=== PATIENT | female | born 1985 | race Caucasian/White ===

== ENCOUNTER 2020-02-10 10:45 | Outpatient (CLI) | payer OTHER, SELFPAY ==
--- NOTE | ~2020-02-10 | US_ITS ---
EXAMINATION: US pelvic complete w TV DATE: 02/10/2020 11:39 INDICATION: Pelvic and perineal pain TECHNIQUE: Multiple transabdominal and endovaginal sonographic images of the pelvis were obtained. COMPARISON: 04/01/2013 FINDINGS: The uterus measures 7.2 x 6.7 x 4.9 cm. The endometrial complex measures 8 mm. The right ov yimi measures 2.3 x 1.7 x 1.7 cm. The left ovary measures 3.4 x 2.8 x 2.3 cm and contains a 2.3 cm cys t. There is normal vascular flow in the ovaries. There is no free fluid in the pelvis. IMPRESSION: 1. No sonographic correlate for the patient's symptoms. Reviewed, dictated and finalized at location A.
== END 2020-02-10 10:46 | disposition home or self-care (01) ==
PROVIDERS: PCP Family Medicine; Visit Provider Obstetrics & Gynecology
DX: R10.2 Pelvic and perineal pain (principal)
CPT/HCPCS: 76830; 76856

== ENCOUNTER 2020-05-04 00:55 | Outpatient (CLI) | payer OTHER, SELFPAY ==
[2020-05-04 18:01] LABS: SARS-CoV-2 RNA PCR Negative
== END 2020-05-04 00:56 | disposition home or self-care (01) ==
LOC: ANHCOVIDDT 00:55
PROVIDERS: PCP Family Medicine; Visit Provider Obstetrics & Gynecology
DX: Z20.828 Contact with and (suspected) exposure to other viral communicable diseases (principal)
CPT/HCPCS: 87635; C9803; U0003

== ENCOUNTER 2020-05-06 00:30 | Day surgery (SDC) | payer OTHER, SELFPAY ==
[2020-04-21 14:12] VITALS: BMI 20.2
--- NOTE | 2020-05-05 15:53 | PM.IMHP ---
H&P: HPI History of Present Illness Date/Time: 05/05/20 15:53 Chief complaint: menorrhagia dysmenorrhea Narrative: Rand Ash is a 35 year old female with a history of pelvic pain that has been increasing this year. The pain is cyclic. Have recommended premenstrual NSAIDs and this has not helped. She has been evaluated for endometritis which was negative. She has had a normal pelvic ultrasound. She refuses to take any type of hormonal option to help with the pain. She has had an endometrial ablation which did decrease her heavy flow but she states the flow has gotten back heavy over the past three months. 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 Discussed treatment options if endometriosis. She does not want to do any medication. She desires definitive treatment since her bleeding is still heavy for her even after the ablation. She has been informed of risk benefit of each option. Informed of 5-8% chance of needing any needing evaluation of ovaries since they will be not be removed unless concern seen with the ovaries at time of surgery. It is recommended at this age not to remove ovaries. She declines trial of control pills,Depo-Provera or IUD. Offered Orilissa and she declines. Spouse has vasectomy. Review of Systems Review of Systems: All systems reviewed & are unremarkable except as noted in HPI and below Constitutional: Constitutional: Reports no additional constitutional complaints Eyes: Eyes: Reports no additional eye complaints ENT: Reports Normal hearing present Cardiovascular: Cardiovascular: Denies chest pain and Denies dyspnea Respiratory: Respiratory: Reports no additional respiratory complaints, Reports cough, Denies dyspnea and Reports other Gastrointestinal: Gastrointestinal: Denies abdominal pain Genitourinary: Genitourinary: Reports no additional female genitourinary complaints, Reports as per HPI, Denies dyspareunia, Denies vaginal discharge, Denies vaginal dryness, Denies vaginal odor and Denies vaginal pruritus Integumentary/Breasts: Skin/Breast: Denies breast mass and Denies nipple discharge Neurologic: Reports Normal hearing present Psychiatric: Psychiatric: Reports no additional psychiatric complaints Endocrine: Endocrine: Reports no additional endocrine complaints Hematologic/Lymphatic: Hematologic/Lymphatic: Reports no additional hematologic/lymphatic complaints [facility] Past Medical History Medical History Anemia Anxiety Menometrorrhagia Surgical History Surgical History S/P endometrial ablation Family History Family History Father Family history of elevated blood lipids Family history of diabetes mellitus in first degree relative Grandparent Diabetes mellitus Other Depression Hypertension Malignant neoplasm of prostate Other malignant neoplasm without specification of site Sudden of family member Social History Social History Smoking status: Never smoker Second hand tobacco smoke exposure: No Alcohol intake: current Drinks per week: 1 Substance use: never Living arrangements: with family Spiritual care concerns: No Meds Home Medications and Allergies Home Medications Medication Instructions Recorded Confirmed Type Adult Probiotic 1 cap PO DAILY 04/21/20 04/22/20 History ibuprofen 400 mg PO Q6H PRN 04/21/20 04/22/20 History mihgpzuvqzsr-snu-kcth-FA-vit K 1 tablet PO DAILY 04/21/20 04/22/20 History [Adults Multivitamin] Allergies Allergy/AdvReac Type Severity Reaction Status Date / Time codeine Allergy Severe Other Verified
[2020-05-06] VITALS (17 sets, daily range): BP systolic 96–127; BP diastolic 43–79; PULSE 65–86; RESP 10–18; TEMP 36.1–37.6; O2SAT 97–100
[2020-05-06] MEDS: LACTATED RINGERS 1,000 ML 30 ML IV CONT ×2 (06:40→11:55)
[2020-05-06] MEDS: ACETAMINOPHEN 500 MG TABLET 1000 MG PO (06:57)
[2020-05-06] MEDS: KETOROLAC 15 MG/ML VIAL (*BKC) IV PUSH (06:57)
--- NOTE | 2020-05-06 07:07 | WPDANESEPPF ---
Anes - Initial Pre Proc Eval Procedure: Operation Date: 05/06/20 07:30 Proposed Procedures p Robotic Assisted Laparoscopic Hysterectomy With Bilateral Salpingectomy - Daniel Segundo MD Date/Time: 05/06/20 07:07 Surgeon: Daniel Segundo MD Pre Op Diagnosis: menorrhagia dysmenorrhea Patient Data Age: 35 Gender: F Height: 5 ft 6 in Weight: 57.9 kg Last Vital Signs Temp 37.2 C 05/06/20 06:57 Pulse 82 05/06/20 06:57 Resp 16 05/06/20 06:57 BP 114/70 05/06/20 06:57 Pulse Ox 100 05/06/20 06:57 Allergies Allergy/AdvReac Type Severity Reaction Status Date / Time codeine Allergy Severe Other Verified 05/06/20 06:25 Penicillins Allergy Intermediate HIVES Verified 04/21/20 16:19 Home Medications Medication Instructions Recorded Confirmed Type Adult Probiotic 1 cap PO DAILY 04/21/20 05/06/20 History ibuprofen 400 mg PO Q6H PRN 04/21/20 05/06/20 History csalcjucqfsw-mcu-ljzy-FA-vit K 1 tablet PO DAILY 04/21/20 05/06/20 History [Adults Multivitamin] Patient hx anesthesia problems: none Family hx anesthesia problems: none PMFSH Past Medical History Medical History Anemia Anxiety Menometrorrhagia Surgical History Surgical History S/P endometrial ablation Family History Family History Father Family history of elevated blood lipids Family history of diabetes mellitus in first degree relative Grandparent Diabetes mellitus Other Depression Hypertension Malignant neoplasm of prostate Other malignant neoplasm without specification of site Sudden of family member Social History Social History Smoking status: Never smoker Second hand tobacco smoke exposure: No Alcohol intake: current Drinks per week: 1 Substance use: never Living arrangements: with family Spiritual care concerns: No Anes - Eval Final PreProcedure Day of Procedure 05/06/20 07:07 Patient weight: normal Heart: regular rate and rhythm Lungs: clear to auscultation Airway: Mallampati scale class II Neurological: alert and oriented Last oral intake: >/= 8 hours ASA classification: II Emergent: no Anesthetic plan: proceed Anesthesia type and monitoring: general ETT and standard monitoring Informed Consent: The patient's anesthetic plan and its attendant risks and benefits were discussed with the patient/family/POA. Questions were solicited and answers provided to the satisfaction of the patient/family/POA.
--- NOTE | 2020-05-06 07:19 | WPDHPUPDATE1 ---
History and Physical Update Update Date/Time: 05/06/20 07:19 History and Physical has been reviewed, including an updated exam of the patient. There are NO changes in the patient's condition. Risks, benefits, and alternatives have been discussed and questions answered. Patient agrees to proceed with procedure.
[2020-05-06] MEDS: CLINDAMYCIN 900 MG/NS 50 ML 900 MG/50 ML PIGGYBACK 50 MG IVPB (07:29)
--- NOTE | 2020-05-06 11:04 | SUR.OPER ---
Qoq=[id number]
[2020-05-06] MEDS: fentaNYL CITRATE INJ (*CRX) 100 MCG/2 ML VIAL 25 MCG IV PUSH ×6 (12:02→12:27)
--- NOTE | 2020-05-06 12:04 | PM.PROC ---
Procedure Note - Detailed Date of procedure: 05/07/20 Pre-op diagnosis: menorrhagia dysmenorrhea Post-op diagnosis: same Procedure performed: Robotic assisted laparoscopic total hysterectomy and bilateral salpingectomy. Description of procedure: After informed consent was obtained patient was taken to the operating room and general endotracheal anesthesia was administered. She was placed in low lithotomy position and prepped and draped in sterile fashion. Prior to being prepped and draped and exam under anesthesia was performed and no masses were palpated uterus palpated to be normal size. Attention was then turned to the vagina. A Madrigal catheter had been placed in bladder during prep. Weighted speculum was placed in the vagina. The anterior vaginal wall was retracted with a retractor. A single-tooth tenaculum was placed on the anterior lip of the cervix the uterus was sounded to 8 cm the cervix was dilated with a dilator. The uterine manipulator was inserted and the bulb would not inflate twice. 0 vicyl suture was placed at anterior and posterior cervix and attached to clamp with the maniipulator handle. A 3.5 cm colp cup was secured in the vagina. Prior to securing the cup the single-tooth tenaculum was removed from the cervix. Attention was then turned to the abdomen. With sterile gloves a horizontal incision was made 2cm above the umbilicus with the scalpel. A Veress needle was inserted into the abdomen confirmation into the abdomen was obtained with normal free flow of fluid through the veress needle and normal peritoneal pressures. A pneumoperitoneum of 15 mm per mercury was obtained and a size 11 trocar was inserted under laparoscopic visualization. Attention was then turned to the left side of the abdomen and a robotic port was inserted under laparoscopic visualization. Attention was then turned to the right side parallel to this and a robotic port was inserted under laparoscopic visualization. Superior and medial to this a music library assistant port was inserted under laparoscopic visualization. The patient was placed in Trendelenburg to allow the intestinal organs out of the pelvis. The robotic arms were then attached to the ports. Attention was then turned to the surgery console. Attention was turned to the right round ligament which was cauterized and cut the anterior leaf of the broad ligament was further dissected anteriorly to the vesicouterine peritoneum. The bladder was dissected from the lower uterine segment anteriorly attention was then attention was turned to the fallopian tube which was cauterized from the upper broad ligament and distal ovary. Attention was then turned to the ovarian ligament which was then cauterized and cut. The broad ligament was further cauterized and ascending uterine vessels were cauterized. The uterine arteries were skeletonized. Attention was then turned to the left fallopian tube which was cauterized from the broad ligament. The left ovarian ligament was cauterized. The ascending uterine vessels were cauterized from the broad ligament. Broad ligament furthe dissected. Attention was then turned to the left round ligament which was cauterized and incised. The anterior leaf of the broad ligament was further incised to the vesicouterine peritoneum. The bladder was further dissected from the rest of the lower uterine segment. The uterine vessels on the left side were noted to be engorged and tortuous. The uterine arteries on the left side were skeletonized and cauterized. The cardinal ligament cauterized. Attention was then turned to the right side and the uterine arteries were skeletonized and uterine arteries were cauterized after the bladder was dissected below the palpable colp cup. The right cardinal ligaments were then cauterized and anterior colpotomy incision was made and the cervix was cauterized from the vagina. The cervix with the uterus and right and left fallopian tubes were then removed through the vagina. The vaginal cuff wa
[2020-05-06] MEDS: HYDROmorphone HCL INJ (*CRX) 1 MG/ML SYR 0.5 MG IV PUSH ×2 (12:30→12:39)
[2020-05-06] MEDS: DEXTROSE 5%/0.45% SOD CHL 1,000 ML 125 ML IV CONT ×2 (14:05→22:25)
--- NOTE | 2020-05-06 15:22 | PC.NURSE ---
This patient, Rand Baez Unfried, was admitted to OB 2nd Floor Room 289-00. Patient/family oriented to hospital policies and general routines including ID bracelet, bed and alarms, visiting hours, pain management, procedures, bathroom and other care routines, personal items, smoking policy, room service/diet, and visiting hours. Valuables list has been completed. Information on how to activate the Rapid Response Team has been discussed. Patient/Family are encouraged to report perceived risks to care and to ask questions if they do not understand what they are told or what they should do.
--- NOTE | 2020-05-06 15:58 | P.PNOB_ITS ---
SHADOWGRAPH SCALE OPERATOR - A/P Postoperative Procedures: Procedures Operation Date: 05/06/20 07:30 Actual Procedures Side Surgeon p Robotic Assisted Laparoscopic Hysterectomy With Bilateral Salpingectomy Bilateral Daniel Segundo MD Time Spent With Patient Time: Total time spent is greater than 50% in coordination of care (as documented) at patient's floor/unit and/or counseling patient: Time with patient: less than 15 minutes SHADOWGRAPH SCALE OPERATOR- PN:Subj Post-Op Subjective Date/time seen: 05/06/20 15:58 Patient awake. She states that she does not have much abdominal pain but she is very uncomfortable with catheter. She has always had sensitivity to catheters. Will remove and told her if has to urinate then bed regalado or they can see if she able to ambulate with assistance. Will DC catheter. Explained her surgery to her. Spouse in room also. SHADOWGRAPH SCALE OPERATOR - PN: Obj Data Vital Signs Vital Signs: Vital Signs - 24 hr 05/06/20 06:57 05/06/20 11:55 05/06/20 12:10 Temperature 99.0 F 97.0 F L Pulse Rate 82 69 72 Respiratory Rate 16 10 L 18 Blood Pressure 114/70 108/68 110/59 L Pulse Oximetry 100 100 100 05/06/20 12:25 05/06/20 12:40 05/06/20 12:55 Temperature 98.3 F Pulse Rate 65 70 66 Respiratory Rate 14 14 16 Blood Pressure 102/73 104/66 127/79 Pulse Oximetry 100 100 99 05/06/20 13:30 05/06/20 13:45 05/06/20 14:00 Temperature 99.6 F Pulse Rate 83 69 84 Respiratory Rate 16 16 16 Blood Pressure 119/75 108/57 L 105/58 L Pulse Oximetry 100 97 98 05/06/20 14:30 05/06/20 15:00 Temperature 98.5 F Pulse Rate 78 84 Respiratory Rate 16 16 Blood Pressure 109/51 L 108/51 L Pulse Oximetry 98 98 Intake/Output Intake/Output: Intake & Output 05/03/20 05/04/20 05/05/20 05/06/20 23:59 23:59 23:59 23:59 Intake Total 450 Output Total 245 Balance 205 Meds/Results Medications: Active Medications Generic Name Dose Route Start Last Admin Trade Name Freq PRN Reason Stop Dose Admin Dextrose/Sodium Chloride 1,000 mls @ 125 mls/hr 05/06/20 12:10 05/06/20 14:05 Dextrose 5% Sodium Chloride 0.45% IV CONT 125 mls/hr .Q8H TYRON Administration Acetaminophen 1,000 mg in 100 mls @ 400 mls/hr 05/06/20 12:00 05/06/20 14:05 Ofirmev 1,000 Mg Ivpb IVPB 05/07/20 12:01 400 mls/hr Q6HR TYRON Administration Naloxone HCl 0.1 mg 05/06/20 12:07 Narcan IV PUSH Q2M PRN Respiratory rate less than 10 Ondansetron HCl 4 mg 05/06/20 06:54 Zofran Inj IV PUSH ONCE PRN Nausea Ondansetron HCl 4 mg 05/06/20 12:07 Zofran Inj IV PUSH Q6H PRN Nausea And Vomiting Simethicone 80 mg 05/06/20 12:07 Mylicon PO Q2H PRN Gas Labs CBC & Chem 7: 05/07/20 04:19 Labs: Laboratory Results - last 24 hr 05/06/20 06:50 Blood Type O Positive Antibody Screen Negative
[2020-05-06] MEDS: ONDANSETRON INJ 4 MG/2 ML VIAL IV PUSH (20:38)
[2020-05-06] MEDS: FENTANYL 600MCG/NS30MLPCA(*CRX 600 MCG/30 ML PCA.VIAL 10 MCG IV CONT (23:03)
--- NOTE | 2020-05-06 23:05 | PC.NURSE ---
Patient states she is in a lot of pain. OVEN BAKER started per Dr. Segundo's orders, education on OVEN BAKER discussed with patient and her . Both verbalize understanding. Patient very anxious about the medication, pain, and voiding. I placed the blood pressure cuff on the patient to get vitals for the lunchroom food service supervisor and she started to go into a panic attack. She asked that the cuff be removed, she states that she can not stand to have things on her like the blood pressure cuff or the SCD's, she states she just wants to sleep and feels that she cannot sleep if those are on her. Pt is in tears, she just wants to relax and sleep. BP cuff and SCD's removed will monitor BP when I come back in the room to get her up to the bathroom or if she calls out. in the room and will continue to monitor patient also and call out if there is any concern. Call light within reach.
[2020-05-07 01:00] VITALS: BP 101/65; PULSE 82; RESP 18; TEMP 37.2; O2SAT 100
[2020-05-07 01:50] VITALS: BP 102/61; PULSE 88; RESP 18; O2SAT 100
[2020-05-07 04:25] VITALS: BP 96/56; PULSE 66; RESP 18; TEMP 36.9; O2SAT 100
[2020-05-07 04:28] VITALS: RESP 18; O2SAT 100
[2020-05-07 05:30] LABS: Basophils Percent Auto 0.3 % (0.2-1.2); Hematocrit 29.3 % (37.0-47.0); Hemoglobin 9.9 g/dL (12.0-15.0); Immature Granulocyte Absolute 0.03 K/mm3 (0.00-0.031); Immature Granulocyte Percent A 0.3 % (0-0.5); Lymphocytes Absolute Auto 2.17 K/mm3 (0.9-3.2); Lymphocytes Percent Auto 18.6 % (18.3-44.2); Mean Corpuscular HGB Conc 33.8 g/dl (32-36); Mean Corpuscular Volume 91.8 fl (80-100); Mean Platelet Volume 12.8 fl (7.4-10.4); Monocytes Percent Auto 8.5 % (2.6-8.5); Neutrophils Absolute Auto 8.5 K/mm3 (1.3-6.7); Neutrophils Percent Auto 72.3 % (45.5-73.1); Platelet Count Result 153 k/mm3 (150-375); Red Blood Count 3.19 M/mm3 (4.2-5.4); Red Cell Distribution Width 11.9 % (11.5-14.5); White Blood Count 11.7 K/mm3 (4.5-10.0)
[2020-05-07] MEDS: DEXTROSE 5%/0.45% SOD CHL 1,000 ML 125 ML IV CONT (07:06)
[2020-05-07 07:27] VITALS: RESP 16
[2020-05-07] MEDS: SIMETHICONE 80 MG TAB.CHEW PO ×2 (07:38→09:36)
[2020-05-07 08:30] VITALS: BP 101/61; PULSE 65; RESP 18; TEMP 36.7; O2SAT 99
[2020-05-07] MEDS: KETOROLAC 30 MG/ML VIAL (*BKC) (09:31)
--- NOTE | 2020-05-07 10:33 | PM.GYNPNOP ---
ENGINEERING ADMINISTRATOR - A/P Assessment and plan (1) Status post hysterectomy: Code(s): Z90.710 - Acquired absence of both cervix and uterus Status: Acute Assessment and Plan: POD1. She is doing fine. She wants to try to avoid anything with codeine related. Will try Tramadol. Anticipate discharge today. Encourage ambulation. Postoperative Procedures: Procedures Operation Date: 05/06/20 07:30 Actual Procedures Side Surgeon p Robotic Assisted Laparoscopic Hysterectomy With Bilateral Salpingectomy Bilateral Daniel Segundo MD Time Spent With Patient Time: Total time spent is greater than 50% in coordination of care (as documented) at patient's floor/unit and/or counseling patient: Time with patient: less than 15 minutes ENGINEERING ADMINISTRATOR- PN:Subj Post-Op Subjective Date/time seen: 05/07/20819 She has been getting up in room. Going to urinate without problems. Tolerated regular diet today. Positive flatus this am. She states sore but not pain. Exam Const: General: no acute distress Eyes: General: appearance normal, both eyes and all related structures Resp: Effort & Inspection: normal respiratory effort Auscultation: clear to auscultation bilaterally Cardio: Rate: regular rate Rhythm: regular rhythm GI: Other: + BS, soft, incisions without drainage, appropriate tenderness Extrem: Other: Nontender ENGINEERING ADMINISTRATOR - PN: Obj Data Vital Signs Vital Signs: Vital Signs - 24 hr 05/06/20 11:55 05/06/20 12:10 05/06/20 12:25 Temperature 97.0 F L Pulse Rate 69 72 65 Respiratory Rate 10 L 18 14 Blood Pressure 108/68 110/59 L 102/73 Pulse Oximetry 100 100 100 05/06/20 12:40 05/06/20 12:55 05/06/20 13:30 Temperature 98.3 F 99.6 F Pulse Rate 70 66 83 Respiratory Rate 14 16 16 Blood Pressure 104/66 127/79 119/75 Pulse Oximetry 100 99 100 05/06/20 13:45 05/06/20 14:00 05/06/20 14:30 Temperature Pulse Rate 69 84 78 Respiratory Rate 16 16 16 Blood Pressure 108/57 L 105/58 L 109/51 L Pulse Oximetry 97 98 98 05/06/20 15:00 05/06/20 16:30 05/06/20 17:38 Temperature 98.5 F Pulse Rate 84 81 69 Respiratory Rate 16 18 18 Blood Pressure 108/51 L 99/53 L 97/60 L Pulse Oximetry 98 97 100 05/06/20 20:00 05/06/20 21:58 05/06/20 23:00 Temperature 98.3 F 98.3 F 99.4 F Pulse Rate 85 85 86 Respiratory Rate 18 18 18 Blood Pressure 96/43 L 96/43 L 105/63 Pulse Oximetry 100 100 100 05/06/20 23:03 05/07/20 01:00 05/07/20 01:50 Temperature 98.9 F Pulse Rate 82 88 Respiratory Rate 18 18 18 Blood Pressure 101/65 102/61 Pulse Oximetry 100 100 100 05/07/20 04:25 05/07/20 04:28 05/07/20 07:27 Temperature 98.5 F Pulse Rate 66 Respiratory Rate 18 18 16 Blood Pressure 96/56 L Pulse Oximetry 100 100 05/07/20 08:30 Temperature 98.1 F Pulse Rate 65 Respiratory Rate 18 Blood Pressure 101/61 Pulse Oximetry 99 Intake/Output Intake/Output: Intake & Output 05/04/20 05/05/20 05/06/20 05/07/20 23:59 23:59 23:59 23:59 Intake Total 2600 1250 Output Total 1695 500 Balance 905 750 Meds/Results Medications: Active Medications Generic Name Dose Route Start Last Admin Trade Name Freq PRN Reason Stop Dose Admin Ketorolac Tromethamine 10 mg 05/07/20 09:04 Toradol Tab PO Q6H PRN Pain Rated 4-6 Naloxone HCl 0.1 mg 05/06/20 12:07 Narcan IV PUSH Q2M PRN Respiratory rate less than 10 Ondansetron HCl 4 mg 05/06/20 06:54 05/06/20 20:38 Zofran Inj IV PUSH 4 mg ONCE PRN Administration Nausea Ondansetron HCl 4 mg 05/06/20 12:07 Zofran Inj IV PUSH Q6H PRN Nausea And Vomiting Simethicone 80 mg 05/06/20 12:07 05/07/20 09:36 Mylicon PO 80 mg Q2H PRN Administration Gas Tramadol HCl 50 mg 05/07/20 09:04 Ultram PO Q4H PRN Pain Rated 4-6 Labs CBC & Chem 7: 10/01/20 04:19 Labs: Laboratory Results - last 24 hr 05/07/20 04:19 WBC 11.7 H RBC 3.19 L Hgb 9.9 L D Hct
--- NOTE | 2020-05-07 10:57 | P.PNAN_ITS ---
Anes - Prog Note Post-Op Date/Time: 05/07/20 10:57 Cardiovascular status: normal Respiratory status: normal Airway patency: baseline Mental status: baseline Post-Op hydration status: normal Vital Signs: Last Vital Signs Temp 36.7 C 05/07/20 08:30 Pulse 65 05/07/20 08:30 Resp 18 05/07/20 08:30 BP 101/61 05/07/20 08:30 Pulse Ox 99 05/07/20 08:30 Pain Score (VAS): 0 I/O: Intake & Output 05/06/20 05/07/20 05/07/20 23:59 07:59 15:59 Intake Total 2050 1250 Output Total 1450 500 Balance 600 750 Laboratory Tests 05/07/20 04:19 05/07/20 04:19 WBC 11.7 H RBC 3.19 L Hgb 9.9 L D Hct 29.3 L MCV 91.8 MCH 31.0 MCHC 33.8 RDW 11.9 Plt Count 153 MPV 12.8 H Immature Gran % (Auto) 0.3 Neut % (Auto) 72.3 Lymph % (Auto) 18.6 Antelope % (Auto) 8.5 Eos % (Auto) 0.0 Baso % (Auto) 0.3 Lymph # (Auto) 2.17 Antelope # (Auto) 1.0 H Eos # (Auto) 0.0 Baso # (Auto) 0.0 Abs Immat Gran (auto) 0.03 Absolute Neuts (auto) 8.5 H Absolute Nucleated RBC 0.0 Nucleated RBC % 0.0 Post-procedural complaints: none Patient Feedback: Patient satisfied with anesthetic care.
[2020-05-07] MEDS: traMADol HCL (*CRX) 50 MG TABLET PO (11:51)
[2020-05-07] MEDS: KETOROLAC 10 MG TABLET PO (14:59)
== END 2020-05-07 16:46 | disposition home or self-care (01) ==
LOC: ANHSURGERY 06:04 → ANHOB2 13:46
PROVIDERS: PCP Family Medicine; Visit Provider Obstetrics & Gynecology
PROC: (CPT 58571; principal; 2020-05-06 07:30)
DX: N92.0 Excessive and frequent menstruation with regular cycle (principal); N94.6 Dysmenorrhea, unspecified; R10.2 Pelvic and perineal pain; D64.9 Anemia, unspecified; F41.9 Anxiety disorder, unspecified
CPT/HCPCS: 58571; S2900; 36415; 85025; 86850; 86900; 86901; 88307; 99199; A9270; J0131; J1100; J1170; J1200; J1580; J1885; J2250; J2405; J2704; J2710; J3010; J7030; J7120

== ENCOUNTER 2020-05-08 04:38 | Emergency (ER) | payer OTHER, SELFPAY ==
[2020-05-08 04:44] VITALS: BP 107/56; PULSE 85; RESP 15; TEMP 36.4; O2SAT 100
[2020-05-08] MEDS: MORPHINE SULFATE (*CRX) 4 MG/ML INJ IV PUSH (05:30)
[2020-05-08] MEDS: ONDANSETRON INJ 4 MG/2 ML VIAL IV PUSH (05:30)
[2020-05-08] MEDS: SODIUM CHLORIDE 0.9% IV 1,000 ML 999 ML IV CONT (05:31)
[2020-05-08 05:40] LABS: Basophils Percent Auto 0.2 % (0.2-1.2); Eosinophils Percent Auto 0.5 % (0-4.4); Hematocrit 30.8 % (37.0-47.0); Hemoglobin 10.5 g/dL (12.0-15.0); Immature Granulocyte Absolute 0.02 K/mm3 (0.00-0.031); Immature Granulocyte Percent A 0.2 % (0-0.5); Lymphocytes Absolute Auto 1.11 K/mm3 (0.9-3.2); Lymphocytes Percent Auto 12.7 % (18.3-44.2); Mean Corpuscular HGB Conc 34.1 g/dl (32-36); Mean Corpuscular Hemoglobin 31.1 pg (26-34); Mean Corpuscular Volume 91.1 fl (80-100); Mean Platelet Volume 12.2 fl (7.4-10.4); Monocytes Absolute Auto 0.6 K/mm3 (0.1-0.6); Monocytes Percent Auto 6.5 % (2.6-8.5); Neutrophils Percent Auto 79.9 % (45.5-73.1); Platelet Count Result 163 k/mm3 (150-375); Red Blood Count 3.38 M/mm3 (4.2-5.4); Red Cell Distribution Width 12.2 % (11.5-14.5); White Blood Count 8.7 K/mm3 (4.5-10.0)
[2020-05-08 05:58] LABS: Anion Gap 8 mmol/L (8-16); Blood Urea Nitrogen 5 mg/dL (7-17); Calcium 9.1 mg/dL (8.4-10.2); Carbon Dioxide 28 mmol/L (22-30); Chloride 103 mmol/L (98-107); Estimated Glomerular Filt Rate > 60; Glucose 119 mg/dL (65-105); Potassium 3.8 mmol/L (3.4-5.0); Sodium 139 mmol/L (137-145)
[2020-05-08] MEDS: MECLIZINE HCL 25 MG TABLET PO (06:09)
--- NOTE | 2020-05-08 06:54 | ED.ABDPAIN ---
HPI - Abdominal Pain General Chief Complaint: Abdominal Pain Stated Complaint: abd pain Time Seen by Provider: 05/08/20 05:08 History of Present Illness HPI narrative: Patient is a 35-year-old female who presents to the ER with diffuse abdominal pain. She is couple days postop from a hysterectomy. She has been attempting to take Toradol and tramadol for her pain. Tonight she developed some severe dizziness where the room was jumping and she was nauseated. She began vomiting. The pain then significantly increased and she cannot keep down her pain medication. She said no vaginal bleeding or vaginal discharge. She has been passing gas. Reports she has lacked an appetite. Related Data Allergies Allergy/AdvReac Type Severity Reaction Status Date / Time codeine Allergy Severe Other Verified 05/06/20 06:25 Penicillins Allergy Intermediate HIVES Verified 05/06/20 07:40 Review of Systems Review of Systems: All systems reviewed & are unremarkable except as noted in HPI and below Constitutional: Constitutional: Denies chills, Reports fatigue and Denies fever(s) ENT: Reports vertigo, Denies nasal congestion and Denies sore throat Cardiovascular: Cardiovascular: Denies chest pain, Denies rapid heart rate and Denies radiating jaw, neck or arm pain Gastrointestinal: Gastrointestinal: Reports abdominal pain, Denies constipation, Denies diarrhea, Reports nausea and Reports vomiting Genitourinary: Genitourinary: Denies abnormal vaginal bleeding and Denies vaginal discharge PMFSH Past Medical History Medical History (Updated 05/08/20 @ 07:01 by Isaias Anthony MD) Anemia Anxiety Menometrorrhagia Surgical History Surgical History (Updated 05/08/20 @ 06:56 by Isaias Anthony MD) S/P endometrial ablation Status post hysterectomy Social History Social History Smoking status: Never smoker Second hand tobacco smoke exposure: No Alcohol intake: current Drinks per week: 1 Substance use: never Gender identity (if verbalized by the patient): Female Spiritual care concerns: No Exam Narrative: Exam Narrative: GENERAL: Uncomfortable-appearing, well-nourished, and in no acute distress. HEAD: Normocephalic, atraumatic. EYES: PERRL and EOMI. ENT: Mucous membranes moist. Normal left tympanic membrane. Right tympanic membrane with postsurgical changes causing fever opaque. No erythema. NECK: Supple. CHEST: Clear to auscultation. No respiratory distress. HEART: Regular rate and rhythm. Normal peripheral pulses. ABDOMEN: Soft, mild to moderate diffuse tenderness without guarding, well-healing port sites that are bruised, nondistended, normal active bowel sounds. EXTREMITIES: Normal range of motion. No edema. SKIN: Warm, dry, no rash. NEURO: Alert and oriented x3. Course Course Emergency Course: Dizziness improved with meclizine. Abdominal pain improved with morphine. Will give a second dose of morphine discharge home with some cyclobenzaprine to see if this will help manage some of her pain as well. She is concerned about taking any codeine-based medication due to pancreatitis in the past. Vital Signs Vital signs: Vital Signs Temperature 97.6 F 05/08/20 04:44 Pulse Rate 85 05/08/20 04:44 Respiratory Rate 15 05/08/20 04:44 Blood Pressure 107/56 L 05/08/20 04:44 Pulse Oximetry 100 05/08/20 04:44 Temperature 97.6 F 05/08/20 04:44 Pulse Rate 85 05/08/20 04:44 Respiratory Rate 15 05/08/20 04:44 Blood Pressure 107/56 L 05/08/20 04:44 Pulse Oximetry 100 05/08/20 04:44 MDM - Abdominal Pain Lab Data Result diagrams: 05/08/20 05:30 05/08/20 05:30 Labs: Lab Results 05/08/20 05/08/20 Range/Units 05:30 05:30 WBC 8.7 (4.5-10.0) K/mm3 RBC 3.38 L (4.2-5.4) M/mm3 Hgb 10.5 L (12.0-15.0) g/dL Hct 30.8 L (37.0-47.0) % MCV 91.1 (80-100) fl MCH 31.1 (26-34) pg MCHC 34.1
[2020-05-08] MEDS: MORPHINE SULFATE (*CRX) 2 MG/ML INJ IV PUSH (07:05)
[2020-05-08] MEDS: CYCLOBENZAPRINE HCL 10 MG TABLET PO (07:05)
[2020-05-08 07:16] VITALS: BP 114/73; PULSE 94; RESP 20; TEMP 36.7; O2SAT 100
== END 2020-05-08 07:17 | disposition home or self-care (01) ==
PROVIDERS: Emergency Provider Emergency Medicine; PCP Family Medicine
DX: G89.18 Other acute postprocedural pain (principal); R10.9 Unspecified abdominal pain; R42 Dizziness and giddiness; D64.9 Anemia, unspecified
CPT/HCPCS: 36415; 80048; 85025; 96361; 96374; 96375; 96376; 99284; A9270; J2270; J2405; J7030

== ENCOUNTER 2021-03-25 12:24 | Outpatient (CLI) | payer OTHER, SELFPAY ==
[2021-03-25 13:15] LABS: CRP < 0.5 mg/dL (<1.0)
[2021-03-25 13:49] LABS: Erythrocyte Sedimentation Rate 5 mm/hr (0-20)
[2021-03-29 05:52] LABS: Tissue Transglutaminase IgG Ab 2 U/mL (<6)
[2021-03-31 14:19] LABS: Tissue Transglutaminase IgA Ab 1 U/mL (<4)
== END 2021-03-25 12:25 | disposition home or self-care (01) ==
PROVIDERS: PCP Family Medicine; Visit Provider Internal Medicine Gastroenterology
DX: R14.0 Abdominal distension (gaseous) (principal); R19.7 Diarrhea, unspecified
CPT/HCPCS: 36415; 83516; 85652; 86140

== ENCOUNTER 2023-03-25 06:48 | Outpatient (CLI) | payer OTHER, SELFPAY ==
[2023-03-25 07:39] LABS: Basophils Percent Auto 0.4 % (0.2-1.2); Eosinophils Absolute Auto 0.1 K/mm3 (0-0.3); Eosinophils Percent Auto 1.8 % (0-4.4); Hematocrit 42.9 % (37.0-47.0); Hemoglobin 14.3 g/dL (12.0-15.0); Immature Granulocyte Absolute 0.02 K/mm3 (0.00-0.031); Immature Granulocyte Percent A 0.3 % (0-0.5); Lymphocytes Absolute Auto 2.13 K/mm3 (0.9-3.2); Lymphocytes Percent Auto 27.3 % (18.3-44.2); Mean Corpuscular HGB Conc 33.3 g/dl (32-36); Mean Corpuscular Hemoglobin 31.2 pg (26-34); Mean Corpuscular Volume 93.5 fl (80-100); Mean Platelet Volume 11.9 fl (7.4-10.4); Monocytes Absolute Auto 0.5 K/mm3 (0.1-0.6); Monocytes Percent Auto 6.4 % (2.6-8.5); Neutrophils Percent Auto 63.8 % (45.5-73.1); Platelet Count Result 212 k/mm3 (150-375); Red Blood Count 4.59 M/mm3 (4.2-5.4); Red Cell Distribution Width 12.5 % (11.5-14.5); White Blood Count 7.8 K/mm3 (4.5-10.0)
[2023-03-25 08:01] LABS: Alanine Aminotransferase 23 U/L (6-35); Albumin Level 4.6 g/dL (3.5-5.1); Alkaline Phosphatase 48 U/L (38-126); Anion Gap 5 mmol/L (8-16); Aspartate Amino Transferase 24 U/L (14-36); Bilirubin,Total 0.8 mg/dL (0.2-1.3); Blood Urea Nitrogen 13 mg/dL (7-17); Calcium 9.3 mg/dL (8.4-10.2); Carbon Dioxide 32 mmol/L (22-30); Chloride 99 mmol/L (98-107); Estimated Glomerular Filt Rate > 60; Glucose 97 mg/dL (65-110); Potassium 4.2 mmol/L (3.4-5.0); Sodium 136 mmol/L (137-145)
== END 2023-03-25 06:49 | disposition home or self-care (01) ==
LOC: ANHLAB 06:49
PROVIDERS: PCP Family Medicine; Visit Provider Family Medicine
DX: R53.83 Other fatigue (principal)
CPT/HCPCS: 36415; 80053; 82533; 84443; 85025

== ENCOUNTER 2023-05-03 09:13 | Outpatient (CLI) | payer OTHER, SELFPAY ==
[2023-05-09 15:11] LABS: Thyroid Stimulating Immunoglob <89 % baseline (<140)
== END 2023-05-03 09:14 | disposition home or self-care (01) ==
LOC: ANHLAB 09:15
PROVIDERS: PCP Family Medicine; Visit Provider Chiropractor
DX: E03.9 Hypothyroidism, unspecified (principal)
CPT/HCPCS: 36415; 84445

== ENCOUNTER 2023-07-06 13:45 | Outpatient (CLI) | payer OTHER, SELFPAY | END 2023-07-06 13:46 | disposition home or self-care (01) | LOC: ANHAUDIO 13:48 | PROVIDERS: PCP Family Medicine; Visit Provider Otolaryngology | DX: H65.499 Other chronic nonsuppurative otitis media, unspecified ear (principal); H69.91 Unspecified Eustachian tube disorder, right ear | CPT/HCPCS: 92557; 92567 ==

== ENCOUNTER 2023-10-20 16:00 | Outpatient (CLI) | payer OTHER, SELFPAY ==
--- NOTE | ~2023-10-20 | XR_ITS ---
XR sinus min 3V 10/20/2023 16:54 Indication: Chronic sinusitis Procedure: 5 views of the sinuses Comparison: No prior studies for comparison. Findings: There is no significant opacification of the sinuses. No air-fluid levels. No significant n kulwinder septal deviation. Mastoids appear pneumatized. Impression: 1: No significant abnormality of the sinuses. Reviewed, dictated and finalized at location A. Impression: 1: No significant abnormality of the sinuses.
== END 2023-10-20 16:01 ==
PROVIDERS: PCP Otolaryngology; Visit Provider Otolaryngology
DX: J32.9 Chronic sinusitis, unspecified (principal)
CPT/HCPCS: 70220

== ENCOUNTER 2024-02-14 06:58 | Outpatient (CLI) | payer OTHER, SELFPAY ==
[2024-02-14 07:55] LABS: Basophils Absolute Auto 0.1 K/mm3 (0.0-0.1); Basophils Percent Auto 0.8 % (0.2-1.2); Eosinophils Absolute Auto 0.3 K/mm3 (0-0.3); Eosinophils Percent Auto 4.8 % (0-4.4); Hematocrit 41.4 % (37.0-47.0); Hemoglobin 13.6 g/dL (12.0-15.0); Immature Granulocyte Absolute 0.01 K/mm3 (0.00-0.031); Immature Granulocyte Percent A 0.2 % (0-0.5); Lymphocytes Absolute Auto 2.17 K/mm3 (0.9-3.2); Lymphocytes Percent Auto 32.8 % (18.3-44.2); Mean Corpuscular HGB Conc 32.9 g/dl (32-36); Mean Corpuscular Hemoglobin 30.6 pg (26-34); Mean Corpuscular Volume 93.2 fl (80-100); Mean Platelet Volume 12.4 fl (7.4-10.4); Monocytes Absolute Auto 0.5 K/mm3 (0.1-0.6); Monocytes Percent Auto 7.9 % (2.6-8.5); Neutrophils Absolute Auto 3.6 K/mm3 (1.3-6.7); Neutrophils Percent Auto 53.5 % (45.5-73.1); Platelet Count Result 182 k/mm3 (150-375); Red Blood Count 4.44 M/mm3 (4.2-5.4); Red Cell Distribution Width 12.7 % (11.5-14.5); White Blood Count 6.6 K/mm3 (4.5-10.0)
[2024-02-14 08:10] LABS: Alanine Aminotransferase 15 U/L (6-35); Albumin Level 4.4 g/dL (3.5-5.1); Alkaline Phosphatase 46 U/L (38-126); Anion Gap 8 mmol/L (4-12); Aspartate Amino Transferase 21 U/L (14-36); Bilirubin,Total 0.8 mg/dL (0.2-1.3); Blood Urea Nitrogen 14 mg/dL (7-17); CRP < 0.5 mg/dL (<1.0); Carbon Dioxide 27 mmol/L (22-30); Chloride 104 mmol/L (98-107); Cholesterol 115 mg/dL (0-200); Estimated Glomerular Filt Rate > 60; Glucose 94 mg/dL (65-110); HDL Direct 51 mg/dL; Potassium 3.9 mmol/L (3.4-5.0); Sodium 139 mmol/L (137-145); Triglycerides 63 mg/dL (<150)
[2024-02-14 08:18] LABS: LDL Cholesterol Direct 55 mg/dL
[2024-02-14 08:42] LABS: Thyroid Stimulating Hormone 0.707 uIU/mL (0.465-4.680)
[2024-02-14 09:12] LABS: Iron 126 ug/dL (37-170)
[2024-02-14 09:38] LABS: Free T4 Free Thyroxine 1.11 ng/mL (0.78-2.19); Percent Iron Saturation 38 % (20-50)
[2024-02-14 20:42] LABS: Hemoglobin A1C 5.3 % (<5.7)
[2024-02-15 14:28] LABS: Insulin Level Total 4.2 uIU/mL
[2024-02-16 02:39] LABS: DHEA-Sulfate 390 mcg/dL (19-237); Triiodothyronine T3 Free 3.8 pg/mL (2.3-4.2)
[2024-02-20 08:45] LABS: Reference Lab Test Name Plasminogen Act; Testosterone Free 2.4 pg/mL (0.2-5.0); Thyroid Peroxidase Antibodies 2 IU/mL (<9)
[2024-02-20 20:03] LABS: T3 Reverse 18 ng/dL (8-25)
[2024-02-21 02:23] LABS: Progesterone 1.2 ng/mL
[2024-02-21 17:04] LABS: Estrogen 104 pg/mL
== END 2024-02-14 06:59 | disposition home or self-care (01) ==
LOC: ANHLAB 07:01
PROVIDERS: PCP Family Medicine; Visit Provider Nurse Practitioner
DX: Z71.3 Dietary counseling and surveillance (principal); E72.11 Homocystinuria; E61.1 Iron deficiency; Z86.39 Personal history of other endocrine, nutritional and metabolic disease; E55.9 Vitamin D deficiency, unspecified; Z00.00 Encounter for general adult medical examination without abnormal findings; Z79.890 Hormone replacement therapy; M79.10 Myalgia, unspecified site; E53.9 Vitamin B deficiency, unspecified
CPT/HCPCS: 36415; 80053; 80061; 82306; 82533; 82607; 82627; 82672; 82679; 83036; 83090; 83525; 83540; 83550; 84140; 84144; 84402; 84439; 84443; 84481; 84482; 85025; 86140; 86376

== ENCOUNTER 2024-03-19 15:42 | Outpatient (CLI) | payer OTHER, SELFPAY ==
--- NOTE | ~2024-03-19 | CT_ITS ---
EXAMINATION: CT IAC/mastoids BI wo con DATE: 03/19/2024 16:05 INDICATION: Right ear pain. TECHNIQUE: Computed tomography (CT) of the temporal bones was performed without intravenous contrast. Automated exposure control and iterative reconstruction technique were employed. The dose-length pro duct was 252.29 mGy-cm. COMPARISON: None FINDINGS: RIGHT TEMPORAL BONE: The internal auditory canal, cochlea, vestibule, semicircular canals, vestibular aqueduct, carotid ca nal, jugular bulb, facial nerve course, ossicles, Prussak space, and scutum are normal. There is thic kening of the tympanic membrane. There is cerumen adjacent to the tympanic membrane. The mastoid air cells are normal. LEFT TEMPORAL BONE: The internal auditory canal, cochlea, vestibule, semicircular canals, vestibular aqueduct, carotid ca nal, jugular bulb, facial nerve course, ossicles, Prussak space, scutum, tympanic membrane, external auditory canal, and mastoid air cells are normal. IMPRESSION: 1. Thickening in the right tympanic membrane. Reviewed, dictated and finalized at location A.
== END 2024-03-19 15:43 ==
PROVIDERS: PCP Family Medicine; Visit Provider Nurse Practitioner Family
DX: H92.01 Otalgia, right ear (principal)
CPT/HCPCS: 70480

== ENCOUNTER 2025-02-01 08:49 | Outpatient (CLI) | payer OTHER, SELFPAY ==
[2025-02-01 09:33] LABS: Hematocrit 41.7 % (37.0-47.0); Hemoglobin 13.9 g/dL (12.0-15.0); Mean Corpuscular HGB Conc 33.3 g/dl (32-36); Mean Corpuscular Hemoglobin 30.8 pg (26-34); Mean Corpuscular Volume 92.5 fl (80-100); Mean Platelet Volume 12.4 fl (7.4-10.4); Platelet Count Result 172 k/mm3 (150-375); Red Blood Count 4.51 M/mm3 (4.2-5.4); Red Cell Distribution Width 12.4 % (11.5-14.5); White Blood Count 6.6 K/mm3 (4.5-10.0)
[2025-02-01 09:49] LABS: Alanine Aminotransferase 17 U/L (6-35); Albumin Level 4.4 g/dL (3.5-5.1); Alkaline Phosphatase 45 U/L (38-126); Anion Gap 9 mmol/L (4-12); Aspartate Amino Transferase 24 U/L (14-36); Bilirubin,Total 0.9 mg/dL (0.2-1.3); Blood Urea Nitrogen 10 mg/dL (7-17); Calcium 9.2 mg/dL (8.4-10.2); Carbon Dioxide 25 mmol/L (22-30); Chloride 105 mmol/L (98-107); Cholesterol 119 mg/dL (0-200); Estimated Glomerular Filt Rate > 60; Glucose 90 mg/dL (65-110); HDL Direct 60 mg/dL; Potassium 3.8 mmol/L (3.4-5.0); Sodium 139 mmol/L (137-145); Total Protein 7.2 g/dL (6.3-8.2); Triglycerides 47 mg/dL (<150)
[2025-02-01 10:01] LABS: LDL Cholesterol Direct 39 mg/dL
[2025-02-01 10:19] LABS: Thyroid Stimulating Hormone 0.745 uIU/mL (0.465-4.680)
[2025-02-01 11:00] LABS: Vitamin D 25 Hydroxy 62.5 ng/mL
[2025-02-02 05:19] LABS: FSH 6.5 mIU/mL
== END 2025-02-01 08:50 | disposition home or self-care (01) ==
LOC: ANHLAB 08:51
PROVIDERS: PCP Family Medicine; Visit Provider Obstetrics & Gynecology
DX: N95.1 Menopausal and female climacteric states (principal)
CPT/HCPCS: 36415; 80053; 80061; 82306; 82672; 83001; 84443; 85027